=== PATIENT | female | born 1990 | race Caucasian/White ===

== ENCOUNTER 2021-06-25 11:29 | Outpatient (CLI) | payer OTHER, SELFPAY ==
[2021-06-28 19:08] LABS: HPV APTIMA, High Risk Positive (Negative)
== END 2021-06-25 23:59 | disposition short-term general hospital (02) ==
LOC: LABSPEC 11:37
PROVIDERS: Visit Provider Student in an Organized Health Care Education/Training Program
DX: Z12.4 Encounter for screening for malignant neoplasm of cervix (principal)
CPT/HCPCS: 87624; 88175; G0145